=== PATIENT | male | born 1940 | race Caucasian/White ===

== ENCOUNTER 2021-06-24 02:37 | Day surgery (SDC) | payer MEDICARE, SELFPAY ==
[2021-06-05 12:44] VITALS: BMI 26.6
[2021-06-24 08:55] VITALS: BP 138/86; PULSE 63; RESP 18; TEMP 36.6; O2SAT 100; BMI 25.5
[2021-06-24 09:07] LABS: Glucose Point of Care 144 mg/dl (65-105)
--- NOTE | 2021-06-24 09:11 | WPDGICN ---
Assessment and Plan Assessment and plan (1) Encounter for screening colonoscopy: Code(s): Z12.11 - Encounter for screening for malignant neoplasm of colon Status: Acute Assessment and Plan: Patient presents for screening colonoscopy. Further recommendations will be given after colonoscopy. GI Consult Note Consult date/time: 06/24/21 09:11 HPI: Chet Palacios is a 80 year old male Presents for screening colonoscopy. Patient's current weight appetite bowel movements are normal. He denies abdominal pain. He has had no bleeding. His last colonoscopy was about 2002. His family history is noncontributory. He presents today for neoplasia screening colonoscopy. Review of Systems Review of Systems: All systems reviewed & are unremarkable except as noted in HPI and below PMFSH Past Medical History Medical History (Updated 06/24/21 @ 09:13 by Chad Huynh MD) Actinic keratoses Ceruminosis Erectile dysfunction Overweight Surgical History Surgical History H/O hernia repair H/O vasectomy History of removal of skin mole Family History Family History Mother Hypertension Father Hypertension Patient's father is , Onset Age: 66 Acute myocardial infarction Family history of cardiovascular disease Family history of malignant neoplasm Sibling Hypertension Family history of genitourinary disease Cerebrovascular accident Social History Social History (Updated 03/24/21 @ 14:04 by Yolanda Claudio [facility]) Smoking status: Former smoker Smoking end date: 08/16/1967 Alcohol intake: never Living arrangements: alone Spiritual care concerns: No Meds Home Medications and Allergies Home Medications Medication Instructions Recorded Confirmed Type sildenafil 100 mg tablet 100 mg PO DAILY PRN #30 tablet 12/09/20 06/24/21 Rx irbesartan 300 See Rx Instructions .ROUTE 12/16/20 06/24/21 Rx mg-hydrochlorothiazide 12.5 mg .COMPLEX #90 tablet tablet metformin 1,000 mg tablet See Rx Instructions .ROUTE 12/16/20 06/24/21 Rx .COMPLEX #180 tablet latanoprost (PF) 0.005 % eye drops 1 drp EACH EYE QHS ml 03/24/21 06/24/21 History timolol maleate 0.5 % eye drops 1 drp EACH EYE QAM ml 03/24/21 06/24/21 History aspirin [Adult Aspirin] 81 mg PO DAILY 06/05/21 06/24/21 History multivit with min-folic acid 1 tablet PO DAILY 06/05/21 06/24/21 History [Adult One Daily Multivitamin] riaslyhoazhe-zvgxuzis-pylrko 1 tablet PO DAILY 06/05/21 06/24/21 History [Central Bulmaro Senior-Lutein] Allergies Allergy/AdvReac Type Severity Reaction Status Date / Time lisinopril Allergy Unknown Cough Verified 06/24/21 09:09 Exam Narrative: Physical exam reveals patient be alert. Vital signs stable. HEENT exam is unremarkable. Patient is anicteric. Lungs are clear to auscultation and percussion. Heart is without murmur or extra sounds. Abdominal exam bowel sounds are present soft nontender with no organomegaly. Digital external rectal exam is normal.
--- NOTE | 2021-06-24 09:14 | WPDANESEPPF ---
Anes - Initial Pre Proc Eval Procedure: Operation Date: 06/24/21 10:00 Proposed Procedures p Screening Colonoscopy - Chad Huynh MD Date/Time: 06/24/21 09:14 Surgeon: Chad Huynh MD Pre Op Diagnosis: neoplasm screening Patient Data Age: 80 Gender: M Height: 1.7 m Weight: 74.1 kg Last Vital Signs Temp 36.6 C 06/24/21 08:55 Pulse 63 06/24/21 08:55 Resp 18 06/24/21 08:55 BP 138/86 06/24/21 08:55 Pulse Ox 100 06/24/21 08:55 Allergies Allergy/AdvReac Type Severity Reaction Status Date / Time lisinopril Allergy Unknown Cough Verified 06/24/21 09:09 Home Medications Medication Instructions Recorded Confirmed Type sildenafil 100 mg tablet 100 mg PO DAILY PRN #30 tablet 12/09/20 06/24/21 Rx irbesartan 300 See Rx Instructions .ROUTE 12/16/20 06/24/21 Rx mg-hydrochlorothiazide 12.5 mg .COMPLEX #90 tablet tablet metformin 1,000 mg tablet See Rx Instructions .ROUTE 12/16/20 06/24/21 Rx .COMPLEX #180 tablet latanoprost (PF) 0.005 % eye drops 1 drp EACH EYE QHS ml 03/24/21 06/24/21 History timolol maleate 0.5 % eye drops 1 drp EACH EYE QAM ml 03/24/21 06/24/21 History aspirin [Adult Aspirin] 81 mg PO DAILY 06/05/21 06/24/21 History multivit with min-folic acid 1 tablet PO DAILY 06/05/21 06/24/21 History [Adult One Daily Multivitamin] qjrxbfkdattj-tpgzdbug-cecstl 1 tablet PO DAILY 06/05/21 06/24/21 History [Central Bulmaro Senior-Lutein] Laboratory Tests 06/24/21 09:05 POC Capillary Glucose 144 mg/dl H mg/dl (65-105) Patient hx anesthesia problems: none Family hx anesthesia problems: none Results Review: All pre-operative results and documents have been reviewed as part of the pre-operative evaluation. [facility] Past Medical History Medical History (Updated 06/24/21 @ 09:16 by Miguel Perdomo MD) Actinic keratoses Ceruminosis CKD (chronic kidney disease) stage 3, GFR 30-59 ml/min Diabetes Erectile dysfunction HTN (hypertension) Mixed hyperlipidemia Overweight Surgical History Surgical History H/O hernia repair H/O vasectomy History of removal of skin mole Family History Family History Mother Hypertension Father Hypertension Patient's father is , Onset Age: 66 Acute myocardial infarction Family history of cardiovascular disease Family history of malignant neoplasm Sibling Hypertension Family history of genitourinary disease Cerebrovascular accident Social History Social History (Updated 03/24/21 @ 14:04 by Yolanda Claudio [facility]) Smoking status: Former smoker Smoking end date: 08/16/1967 Alcohol intake: never Living arrangements: alone Spiritual care concerns: No Anes - Eval Final PreProcedure Day of Procedure 06/24/21 09:14 Patient weight: obese Heart: regular rate and rhythm Lungs: clear to auscultation and normal air movement Airway: Mallampati scale class II Neurological: alert and oriented Last oral intake: >/= 8 hours ASA classification: III Emergent: no Anesthetic plan: proceed Anesthesia type and monitoring: general GIVS Results Review: All pre-operative results and documents have been reviewed as part of the pre-operative evaluation. Informed Consent: The patient's anesthetic plan and its attendant risks and benefits were discussed with the patient/family/POA. Questions were solicited and answers provided to the satisfaction of the patient/family/POA.
[2021-06-24] MEDS: LACTATED RINGERS 1,000 ML 150 ML IV CONT (09:22)
[2021-06-24] MEDS: SIMETHICONE ORAL SUSPENSION 20 MG/0.3 ML 30 ML BOTTLE 0.6 ML IRRIGATION (09:50)
[2021-06-24 10:02] VITALS: BP 107/73; PULSE 58; RESP 26; O2SAT 98
[2021-06-24 10:12] VITALS: BP 121/80; PULSE 75; RESP 18; O2SAT 98
[2021-06-24 10:22] VITALS: BP 137/77; PULSE 57; RESP 19; O2SAT 100
== END 2021-06-24 10:30 | disposition home or self-care (01) ==
PROVIDERS: PCP Family Medicine; Visit Provider Internal Medicine Gastroenterology
PROC: 0DJD8ZZ Inspection of Lower Intestinal Tract, Via Natural or Artificial Opening Endoscopic (ICD-10-PCS; CPT 45378; principal; 2021-06-24 10:00)
DX: Z12.11 Encounter for screening for malignant neoplasm of colon (principal); K63.5 Polyp of colon; K64.8 Other hemorrhoids; K57.30 Diverticulosis of large intestine without perforation or abscess without bleeding; Z79.84 Long term (current) use of oral hypoglycemic drugs; Z79.82 Long term (current) use of aspirin; L57.0 Actinic keratosis; E11.22 Type 2 diabetes mellitus with diabetic chronic kidney disease; I12.9 Hypertensive chronic kidney disease with stage 1 through stage 4 chronic kidney disease, or unspecified chronic kidney disease; N18.30 Chronic kidney disease, stage 3 unspecified; E78.2 Mixed hyperlipidemia; Z87.891 Personal history of nicotine dependence; E66.9 Obesity, unspecified; Z68.25 Body mass index [BMI] 25.0-25.9, adult
CPT/HCPCS: 45385; 82948; 88305; J2704; J7120

== ENCOUNTER 2022-10-21 13:43 | Outpatient (CLI) | payer MEDICARE, SELFPAY ==
--- NOTE | ~2022-10-21 | US_ITS ---
Renal-Bladder ultrasound Clinical History: Chronic kidney disease Technique: Real-time sonographic imaging of the kidneys and urinary bladder was performed. Findings: The right kidney measures 10.1 cm in length and the left kidney measures 9.5 cm. There is n o hydronephrosis or renal calculus identified. Renal cortical echogenicity is within normal limits. L eft renal cyst noted. The urinary bladder is moderately distended at the time of this exam. No intraluminal echoes are iden tified. No abnormal wall thickening is seen. Prostate gland is enlarged. Impression: No hydronephrosis. Enlarged prostate gland. Reviewed, dictated and finalized at location M. [employer] Impression: No hydronephrosis. Enlarged prostate gland.
== END 2022-10-21 13:44 | disposition home or self-care (01) ==
PROVIDERS: PCP Family Medicine; Visit Provider Internal Medicine Nephrology
DX: N18.32 Chronic kidney disease, stage 3b (principal); N40.0 Benign prostatic hyperplasia without lower urinary tract symptoms
CPT/HCPCS: 76775

== ENCOUNTER 2025-03-08 13:40 | Outpatient (CLI) | payer MEDICARE, SELFPAY ==
--- NOTE | ~2025-03-08 | PE_ITS ---
EXAMINATION: PET_PETPSMAST_PT DATE: 03/08/2025 15:35 INDICATION: Prostate cancer TECHNIQUE: 4.879 mCi of Illucix Ga-68([id number]) was administered i.v. Low dose computed caty graphy (CT) images were acquired from the base of the brain to the base of the brain to the proximal thighs for attenuation correction and anatomic localization. Positron emission tomography (PET) image s were acquired in the same distribution beginning 77 minutes after injection. Images including fused PET/CT images were reconstructed in axial, coronal, and sagittal planes. Automated exposure control technique was employed. The dose-length product was 908.86mGy-cm. COMPARISON: None FINDINGS: Head/neck: Typical pattern of symmetric physiologic increased activity in the lacrimal, parotid and submandibula r glands as well as along the mucosa of the nasal and oral cavities, pharynx and hypopharynx. No path ologically enlarged cervical lymphadenopathy or suspicious foci of increased uptake in the visualized head or neck. Chest: Mild discoid atelectasis at the basilar lower lobes. No suspicious pulmonary nodules, pneumonia, pulm onary edema or pleural effusion. Heart size normal. Atherosclerotic coronary artery calcific location . No pericardial effusion. Thoracic aorta is normal in caliber. No pathologically enlarged or PSMA av id thoracic lymphadenopathy. Abdomen/pelvis/proximal thighs: Physiologic renal accumulation and excretion of activity in the kidneys, bladder and along portions o f ureters. 2.6 cm exophytic lesion arising from the lower pole the left kidney with soft tissue densi ty and without PSMA activity most likely complex proteinaceous/hemorrhagic cyst although differential includes solid renal cell carcinoma. Prostatomegaly measuring 5.8 x 4.2 cm with region of intense in creased PSA may uptake with maximal SUV be of 3.1 at the posterior midline of the prostate. Consisten t with reported primary prostate cancer and which extends cephalad towards the base of the right semi nal vesicle and could not exclude some local invasion. Normal degree and slightly heterogenous patter n of increased uptake throughout the liver and spleen without radiologic correlate or dominant PSMA a vid lesion. There is a 7.4 x 5.9 x 3.0 cm left upper quadrant mass with some internal calcification w hich appears to arise from the gastric fundus extending below the left hemidiaphragm and anterior to the spleen. The gallbladder, pancreas and bilateral adrenal glands are normal. Moderate uptake scatte red throughout the bowels with typical duodenal and proximal jejunal predominance and without radiolo gic correlate, also likely physiologic. No other abnormal foci of increased uptake or pathologically enlarged lymphadenopathy in the abdomen, pelvis or proximal thighs. Musculoskeletal: Old healed fracture deformity lateral left clavicle. Moderate thoracic and severe cervical and lumbar spondylosis. No suspicious lytic, blastic or abnormally PSMA avid bone lesions. IMPRESSION: 1. Region of increased asymmetric activity at the midline of the posterior prostate which extends tow ards the right seminal vesicle consistent with primary prostate cancer and suspicious enough local in vasion into the seminal vesicle. No lesions suspicious for more remote metastatic disease. 2. 7.4 x 5.9 x 3.0 cm partially calcified exophytic mass arising from the fundus of the stomach witho ut pacemaker activity concerning for neoplasm which could be benign or malignant, most likely a GI st romal tumor with differential including calcifying fibrous tumor or gastric leiomyosarcoma. Consider endoscopic ultrasound-guided biopsy for more definitive determination. 3. Indeterminate 2.6 similar exophytic left renal lesion most likely proteinaceous/pelvic cyst althou gh differential includes renal cell carcinoma. Recommend further evaluation with pre and postcontrast MRI or CT. Reviewed, dictated and finalized at location A. IMPRESSION: 1. Region of increased asymmetric activity at the midline of the posterior pros harkins which extends towards the right seminal vesicle consistent with primary pr ostate cancer and suspicious enough local invasion into the seminal vesicle. No lesions suspicious for more remote metastatic disease. 2. 7.4 x 5.9 x 3.0 cm partially calcified exophytic mass arising from the fundu s of the stomach without pacemaker activity concerning for neoplasm which could be benign or malignant, most likely a GI stromal tumor with differential inclu ding calcifying fibrous tumor or gastric leiomyosarcoma. Consider endoscopic ul trasound-guided biopsy for more definitive determination. 3. Indeterminate 2.6 similar exophytic left renal lesion most likely proteinace ous/pelvic cyst although differential includes renal cell carcinoma. Recommend further evaluation with pre and postcontrast MRI or CT.
== END 2025-03-08 13:41 | disposition home or self-care (01) ==
PROVIDERS: PCP Family Medicine; Visit Provider Urology
DX: C61 Malignant neoplasm of prostate (principal)
CPT/HCPCS: 78815; A9596

== ENCOUNTER 2025-04-10 07:51 | Outpatient (CLI) | payer MEDICARE, SELFPAY ==
--- NOTE | ~2025-04-10 | MR_ITS ---
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 Sequences included coronal T2- weighted SS-FSE, coronal and axial FS 2D-FIESTA, axial STIR FSE, axial T2- weighted SS-FSE, axial T2-weighted FS SS-FSE, axial diffusion-weighted SE, axial dual-echo T1-weighted FSPGR, and axial and coronal T1-weighted LAVA. Postcontrast axial T1-weighted LAVA images were obtained in a time course. Postcontrast coronal T1-weighted LAVA images were obtained. COMPARISON: PET study dated 03/08/2025 FINDINGS: Heart size is normal. No pericardial or pleural effusion. 6.9 x 6.1 x 4.2 cm heterogeneously enhancing exophytic mass arising from the posterior fundus of the liver. There are few scattered T2 hyperintense nonenhancing hepatic cysts the largest measuring 5 mm at the left side of the dome. Gallbladder, spleen, pancreas and bilateral adrenal glands are normal. There are bilateral nonenhancing renal cysts the majority T2 hyperintense and nonenhancing. There are however couple complex cysts in the left kidney with slightly less than simple fluid T2 hyperintensity and with increased T1 signal consistent with hemorrhagic/proteinaceous fluid. The largest which measures 2.9 cm the lower pole the left kidney corresponding to the lesion of concern on prior PET study and demonstrates a single very thin internal septation consistent with a Bosniak 2 cyst. No abnormally enhancing renal lesions identified. Bowels are unremarkable. No pathologically enlarged abdominal or upper pelvic lymphadenopathy. IMPRESSION: 1. 3.1 cm likely benign proteinaceous/hemorrhagic cyst at the lower pole of the left kidney which accounts for the lesion of concern on prior PET study require no further follow-up. 2. Nonspecific 6.9 cm heterogeneously enhancing exophytic mass arising from the posterior fundus of the liver consistent with neoplasm which could be either benign or malignant most likely a GI stromal tumor with differential including fibrous tumor or gastric leiomyosarcoma. Consider endoscopic ultrasound-guided biopsy for definitive determination. Reviewed, dictated and finalized at location A. IMPRESSION: 1. 3.1 cm likely benign proteinaceous/hemorrhagic cyst at the lower pole of the left kidney which accounts for the lesion of concern on prior PET study requir e no further follow-up. 2. Nonspecific 6.9 cm heterogeneously enhancing exophytic mass arising from the posterior fundus of the liver consistent with neoplasm which could be either b enign or malignant most likely a GI stromal tumor with differential including f ibrous tumor or gastric leiomyosarcoma. Consider endoscopic ultrasound-guided b iopsy for definitive determination.
== END 2025-04-10 07:52 | disposition home or self-care (01) ==
PROVIDERS: PCP Family Medicine; Visit Provider Urology
DX: D41.02 Neoplasm of uncertain behavior of left kidney (principal)
CPT/HCPCS: 74183; A9577

== ENCOUNTER 2025-05-24 01:25 | Day surgery (SDC) | payer MEDICARE, SELFPAY ==
[2025-05-23 11:40] VITALS: BMI 28.6
[2025-05-24 07:17] VITALS: BP 143/85; PULSE 51; RESP 18; TEMP 36.3; O2SAT 99
[2025-05-24] MEDS: LACTATED RINGERS 1,000 ML 150 ML IV CONT (07:35)
--- NOTE | 2025-05-24 08:06 | WPDANESEPPF ---
Anes - Initial Pre Proc Eval Procedure: Operation Date: 05/24/25 08:30 Proposed Procedures p Esophagogastroduodenoscopy EGD - Gm Romo MD Date/Time: 05/24/25 08:06 Surgeon: Gm Romo MD Pre Op Diagnosis: Gastric Mass Patient Data Age: 84 Gender: M Height: 1.65 m Weight: 77.6 kg Last Vital Signs Temp 97.3 F L 05/24/25 07:17 Pulse 51 L 05/24/25 07:17 Resp 18 05/24/25 07:17 BP 143/85 H 05/24/25 07:17 Pulse Ox 99 05/24/25 07:17 O2 Del Method Room Air 05/24/25 07:17 Allergies Allergy/AdvReac Type Severity Reaction Status Date / Time lisinopril Allergy Unknown Cough Verified 05/24/25 07:16 Home Medications ?Medication ?Instructions ?Recorded ?Confirmed ?Type latanoprost (PF) 0.005 % eye drops 1 drp EACH EYE QHS 03/24/21 05/23/25 History timolol maleate 0.5 % eye drops 1 drp EACH EYE QAM 03/24/21 05/23/25 History multivitamin with minerals-folic 1 tablet PO DAILY 06/05/21 05/23/25 History acid 0.4 mg tablet hyzfwgyqygjx-kbxnsaua-qezfgm tablet 1 tablet PO DAILY 06/05/21 05/23/25 History aspirin 81 mg tablet,delayed 81 mg PO DAILY #90 tabs 10/05/23 05/23/25 Rx release blood-glucose meter (True Metrix #1 ea 07/24/24 05/23/25 Rx Air Glucose Meter kit) lancets 33 gauge (TRUEplus Lancets) #200 ea 08/10/24 05/23/25 Rx sildenafil 100 mg tablet (Viagra) 100 mg PO DAILY PRN sexual 10/23/24 05/23/25 Rx activity #30 tabs atorvastatin 10 mg tablet 10 mg PO QHS #90 tabs 03/23/25 05/23/25 Rx blood sugar diagnostic (True #300 ea 04/17/25 05/23/25 Rx Metrix Glucose Test Strip) alcohol swabs (DropSafe Alcohol 1 pad topical BID #200 ea 05/21/25 05/23/25 Rx Prep Pads) empagliflozin 25 mg tablet See Rx Instructions .Route 05/21/25 05/23/25 Rx (Jardiance) .COMPLEX #90 tabs irbesartan 300 See Rx Instructions .Route 05/21/25 05/23/25 Rx mg-hydrochlorothiazide 12.5 mg .COMPLEX #90 tabs tablet Laboratory Tests 05/24/25 07:27 POC Capillary Glucose 140 H mg/dl (65-105) Patient hx anesthesia problems: none Family hx anesthesia problems: none Results Review: All pre-operative results and documents have been reviewed as part of the pre-operative evaluation. [facility] Past Medical History Medical History Colon polyp Diabetes HTN (hypertension) Erectile dysfunction Mixed hyperlipidemia Overweight Ceruminosis Actinic keratoses Surgical History Surgical History History of ankle surgery (~1984) History of removal of skin mole H/O vasectomy (~1974) H/O hernia repair (~194) Family History Family History Mother Hypertension Father Hypertension Patient's father is , Onset Age: 66 Acute myocardial infarction Family history of cardiovascular disease Family history of malignant neoplasm Sibling Hypertension Family history of genitourinary disease Cerebrovascular accident Carcinoma of colon Sibling Bradycardia Social History Social History Smoking status: Former smoker Tobacco type: cigarettes Smoking end date: 08/16/1967 Alcohol intake: never Substance use: never Substance use type: does not use Do You Feel Safe in your Home?: Yes Lack of Transportation: No Lack of Food: Never True Current Housing: I Have Housing Concerned About Future Housing: No Difficulty Paying Gas/Electric Bills: No Difficulty Paying for Meds: No Currently Unemployed: No Education: Bachelor's Degree Difficulty w/ Childcare or Family Care: No Living arrangements: alone Gender identity (if verbalized by the patient): Male Spiritual care concerns: No Anes - Eval Final PreProcedure Day of Procedure 05/24/25 08:06 Patient weight: overweight Lungs: normal air movement Airway: Mallampati scale class II Neurological: alert and oriented Last oral intake: >/= 8 hours ASA classification: III Emergent: no Anesthetic plan: proceed Anesthesia type and monitoring: general GIVS and standard monitoring Results Review: All pre-operative results and documents have been reviewed as part of the pre-operative evaluation. Informed Consent: The patient's anesthetic plan and its attendant risks and benefits were discussed with the patient/family/POA. Questions were solicited and answers provided to the satisfaction of the patient/family/POA.
--- NOTE | 2025-05-24 08:20 | WPDHPUPDATE1 ---
History and Physical Update Update Date/Time: 05/24/25 08:20 History and Physical has been reviewed, including an updated exam of the patient. There are NO changes in the patient's condition. Risks, benefits, and alternatives have been discussed and questions answered. Patient agrees to proceed with procedure.
--- NOTE | 2025-05-24 08:31 | S_PTH ---
PATIENT: Chet Palacios LOC: [facility] Torres#:[id number] AGE/SX: 84/M ROOM: RE05/24/[address]: Gm Romo MD : 1940 BED: DIS: 05/24/2025 SPEC #: [id number] RECD: 05/24/25 11:45 STATUS: DANAE REQ #: [id number] RAE: 05/24/25 08:[address]: Gm Romo DEPT: [facility] Surgical RECD BY: Silvia Ryan ENTERED: 05/24/25 11:45 SP TYPE: Surgical OTHR DR: Raheem Edwards MD Tissues: A - Esophageal Biopsy Procedures: Hematoxylin and Eosin Stain Gross and Microscopic Level 4
[2025-05-24 08:36] VITALS: BP 87/53; PULSE 52; RESP 23; O2SAT 96
[2025-05-24 08:46] VITALS: BP 107/65; PULSE 49; RESP 19; O2SAT 98
[2025-05-24 08:56] VITALS: BP 112/65; PULSE 48; RESP 21; O2SAT 100
== END 2025-05-24 09:06 | disposition home or self-care (01) ==
PROVIDERS: PCP Family Medicine; Referring Provider Nurse Practitioner; Visit Provider Internal Medicine Gastroenterology
PROC: 0DJ08ZZ Inspection of Upper Intestinal Tract, Via Natural or Artificial Opening Endoscopic (ICD-10-PCS; CPT 43239; principal; 2025-05-24 08:30)
DX: R94.8 Abnormal results of function studies of other organs and systems (principal); K22.70 Barrett's esophagus without dysplasia; K21.00 Gastro-esophageal reflux disease with esophagitis, without bleeding; K44.9 Diaphragmatic hernia without obstruction or gangrene; D13.1 Benign neoplasm of stomach; E11.22 Type 2 diabetes mellitus with diabetic chronic kidney disease; I12.9 Hypertensive chronic kidney disease with stage 1 through stage 4 chronic kidney disease, or unspecified chronic kidney disease; N18.4 Chronic kidney disease, stage 4 (severe); N52.9 Male erectile dysfunction, unspecified; E78.2 Mixed hyperlipidemia; L57.0 Actinic keratosis; Z79.82 Long term (current) use of aspirin; Z79.84 Long term (current) use of oral hypoglycemic drugs; Z98.890 Other specified postprocedural states; Z85.46 Personal history of malignant neoplasm of prostate; Z86.0100 Personal history of colon polyps, unspecified; Z87.891 Personal history of nicotine dependence; Z80.0 Family history of malignant neoplasm of digestive organs; Z82.49 Family history of ischemic heart disease and other diseases of the circulatory system
CPT/HCPCS: 43239; 82948; 88305; J2003; J2704; J7120